=== PATIENT | female | born 1990 | race African-American/Black ===

== ENCOUNTER 2016-09-07 13:47 | Outpatient (RCR) | payer OTHER ==
[~2016-09-07 13:47] MED LIST: AMOXICILLIN875 MG PO; DOXYCYCLINE 10100 MG PO; FLAGYL500 MG PO; MOTRIN 800800 MG/TAB PO; NO HOME MEDICATIONS; ZOFRAN 4MG T4 MG/TAB PO
== END 2016-11-28 ==
LOC: WSOH
DX: M25.531 Pain in right wrist (principal); X50.0XXA Overexertion from strenuous movement or load, initial encounter; Y99.0 Civilian activity done for income or pay

== ENCOUNTER 2017-02-13 10:39 | Emergency (ER) | payer SELFPAY ==
[~2017-02-13] VITALS: Ht 157.5 cm; Wt 77.3 kg
[~2017-02-13 10:39] MED LIST changes: +MACROBID 1100 MG/CAP PO
[2017-02-13 10:59] VITALS: BP 133/83; TEMP 98.7
[2017-02-13 12:52] LABS: COLLECTION METHOD CLEAN CATCH
[2017-02-13 13:03] LABS: PH 7 (5-8); URINE APPEARANCE Clear; URINE BACTERIA Rare /hpf; URINE BILIRUBIN Negative (NEGATIVE); URINE BLOOD Negative (NEGATIVE); URINE COLOR Amber; URINE GLUCOSE Negative (NEGATIVE); URINE KETONE Negative (NEGATIVE); URINE LEUKOCYTE ESTERASE Negative (NEGATIVE); URINE PROTEIN(semi-quant) Negative (NEGATIVE); URINE RBC 0-2 /hpf; URINE UROBILINOGEN >=4.0 mg/dL (NEGATIVE)
[2017-02-13 15:47] VITALS: PULSE 80
[2017-02-13 17:34] LABS: CHLAMYDIA/TRACH by PCR Female NOT DETECTED; NEISSERIA GON by PCR Female NOT DETECTED
== END 2017-02-13 15:47 | disposition home or self-care (01) ==
LOC: COL.ER 10:39
PROVIDERS: Nurse Practitioner
DX: R30.0 Dysuria (principal)